=== PATIENT | male | born 1930 | race Caucasian/White ===

== ENCOUNTER → 2020-12-09 | Day surgery (SDC) | payer OTHER, BC ==
[~2020-12-09] VITALS: Ht 177.8 cm; Wt 81.7 kg
[~2020-12-09] MED LIST: CHILDREN'S ASPI81 M1 PO; EZETIMIBE10 MG PO; FAMOTIDINE40 MG PO; FISH OIL 1,2001 EAC3 PO; IMDUR 60 MG TAB60 M1 PO; NIFEDIPINE ER30 M1 PO; STOOL SOFTENER100 MG PO; SUPER THERAVIT1 EACH PO; ZOCOR 20 MG TAB20 M1 PO
[2020-12-09 12:30] VITALS: BP 134/60
[2020-12-09 12:57] LABS: HEMATOCRIT 40.6 % (42.0-52.0); HEMOGLOBIN 13.8 gm/dL (14.0-18.0); MCH 33.4 pg (26.0-34.0); MCV 98.1 fL (80.0-100.0); RBC 4.14 mil/uL (4.50-6.00); RDW 12.5 % (10.5-14.5); WBC 6.3 thou/uL (4.0-11.0)
[2020-12-09 13:13] LABS: CALCIUM 9.4 mg/dL (8.5-10.1); CREATININE 1.7 mg/dL (0.7-1.3)
--- NOTE | 2020-12-10 08:19 | EKG ---
[place] [address] [employer] [place] [address] ELECTROCARDIOGRAM REPORT Name: RASHAD SCOTT Room #: REG [facility].#: [id number] Admission: 12/09/20 Attend Phys: Noe Michaels MD Discharge: Date of : [birth year] Report #: [id number] [facility] Test Date: 2020-12-09 Test Time: 12:35:30 Pat Name: RASHAD SCOTT Department: Room: Gender: M Clerical Associate: KRISHAN : [id number] Requested By: Noe Michaels Order Number: [id number] MD: Cristi Jeter Measurements Intervals [place] Rate: 59 P: 17 DC: 181 QRS: -27 QRSD: 111 T: 150 QT: 443 QTc: 439 Interpretive Statements Sinus rhythm Abnormal R-wave progression, early transition LVH with IVCD and secondary repol abnrm No previous ECG available for comparison Electronically Signed On 12-10-2020 8:19:39 CDT by Cristi Jeter [email or web address] <ELECTRONICALLY SIGNED> By: Cristi Jeter MD, [facility] 12/10/20 0819 1235 1235 Cristi Jeter MD, FACC /EPI
--- NOTE | 2020-12-13 06:13 | O ---
[facility] [place] [place] [address] OPERATIVE REPORT Name: RASHAD SCOTT Room #: REG [facility] M..#: [id number] Admission: 12/09/20 Attend Phys: Noe Michaels MD Discharge: Date of : [birth year] Report #: [id number] THIS REPORT FOR: cc: Patrick Pinzon MD, Jason C. MD White,Noe Bowser MD ~ DOC #: [id number] cc: Patrick Michaels MD DATE OF SERVICE: 12/09/2020 PREOPERATIVE DIAGNOSIS: Unilateral left-sided nasal lacrimal duct obstruction. POSTOPERATIVE DIAGNOSIS: Unilateral left-sided nasal lacrimal duct obstruction. OPERATION PERFORMED: Unilateral left-sided endoscopic balloon dacryoplasty with silicone intubation. ANESTHESIA: General. COMPLICATIONS: None. INDICATIONS FOR SURGERY: This patient has acquired unilateral nasal lacrimal duct stenosis with chronic tearing and discharge. The current procedures are undertaken in order to improve the patient's level of lacrimal outflow and visual clarity. Informed consent was obtained to include but not limited to the potential risks for damage to the eye, loss of vision, bleeding, infection, failure to improve the problem and need for further surgery. DESCRIPTION OF OPERATION: The patient was taken to the operating room, where general anesthesia was administered. The medial canthus was anesthetized with 2% Xylocaine with epinephrine mixed with equal parts of 0.75% Marcaine with Wydase. The lateral wall of the nose was then injected with the same anesthetic mixture. The nose was packed with Afrin-soaked Cottonoids. The patient was then prepped and draped in the usual sterile fashion. The superior and inferior puncta were then atraumatically dilated with a punctum dilator. A size 0 lacrimal probe was then passed through the superior canalicular system and through the stenosed nasal lacrimal duct. The nasal packing was removed and the endoscope was brought into the field. The inferior turbinate was gently infractured with a Win[place] periosteal elevator to allow visualization of the inferior meatus in the area of the opening of the valve of Hasner in the nose. The probe was found and confirmed to be in the proper [facility] [address] [place] [address] OPERATIVE REPORT Name: TYLERRASHAD Room #: REG [facility] M.R.#: [id number] Admission: 12/09/20 Attend Phys: Noe Michaels MD Discharge: Date of : [birth year] Report #: [id number] location. It was removed and subsequently replaced with a size 1 and a size 2 Horn probe, which also had their passage confirmed endoscopically to be in the proper location. A 3 x 15 LacriCatheter was lubricated with a small quantity of ophthalmic antibiotic ointment. The LacriCatheter was then passed through the superior canalicular system and the stenosed nasal lacrimal duct. The LacriCatheter was confirmed to be in the proper location endoscopically intranasally in the inferior meatus. The LacriCatheter was inflated to 9 atmospheres for 90 seconds and deflated. The catheter was then inflated to 9 atmospheres for 60 seconds. The catheter was then withdrawn to the proximal black ring. It was then inflated to 9 atmospheres for 90 seconds. The balloon was then deflated and reinflated to 9 atmospheres for 60 seconds. The balloon was the aspirated and withdrawn to the distal black ring. It was then inflated to 9 atmospheres for 90 seconds. The balloon was deflated and reinflated to 9 atmospheres for 60 seconds. The balloon was then deflated and vigorously aspirated as it was withdrawn through the superior canalicular system. A Cuello tube was then passed through the superior canalicular system and out the dilated duct. The Cuello tube was secured under the inferior turbinate in the inferior meatus with a Cuello hook and retrieved endoscopically. The Cuello tube was then passed through the inferior canalicular system in a similar fashion and was retrieved endoscopically in the nose atraumatically. The Cuello tube was then secured to itself with 3 square throws and then to the lateral wall of the nose with a 5-0 Prolene suture. Antibiotic steroid drops were then placed in the eye. A small quantity of ophthalmic antibiotic ointment was placed on the Cuello tube. The patient was then transported to the recovery area with no anesthetic or operative complications being noted. Noe Michaels MD WLW/CINDY <ELECTRONICALLY SIGNED> By: Noe Michaels MD 12/13/20 0613 1500 1550 Noe Michaels MD /nt
== END | disposition home or self-care (01) ==
LOC: OR 10:34
PROVIDERS: ATTEND Ophthalmology
DX: H04.552 Acquired stenosis of left nasolacrimal duct (principal); I10 Essential (primary) hypertension; E78.00 Pure hypercholesterolemia, unspecified; Z98.890 Other specified postprocedural states; Z79.899 Other long term (current) drug therapy; Z20.822 Contact with and (suspected) exposure to COVID-19; Z88.0 Allergy status to penicillin; Z88.8 Allergy status to other drugs, medicaments and biological substances
CPT/HCPCS: 50010; 50101; 50386; 50398; 51777; 55343; 56528; 62110; 62900; 70005